=== PATIENT | male | born 1980 | race Caucasian/White ===

== ENCOUNTER 2020-08-30 09:40 | Emergency (ER) | payer OTHER, MEDICAID, SELFPAY ==
[2020-08-30 10:12] VITALS: BP 128/67; PULSE 81; RESP 18; TEMP 37; O2SAT 97; BMI 29.8
--- NOTE | 2020-08-30 10:59 | ED.GENADULT ---
HPI - General Adult General Chief complaint: Upper Respiratory Symptoms Stated complaint: covid symptoms Time Seen by Provider: 08/30/20 10:19 Source: patient Mode of arrival: ambulatory Limitations: no limitations History of Present Illness HPI narrative: 40 y/o male presenting with a dry, scratchy throat for the last 3-4 days. He is requesting a COVID test. He reports a coworker who he was in close proximiety to on Saturday tested positive for COVID-19 yesterday. 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 He denies all other symptoms. No chest pain, SOB, ROSSI, fevers. He is hoping his sore throat is from his seasonal allergies as he has been having some watery eyes as well. MD complaint: sore throat Onset (ago): day(s) (4) Location: mouth Radiation: non-radiation Severity: mild Quality: sharp Pain Consistency: constant Relieving factors: none Exacerbating factors: eating Associated symptoms: denies other symptoms Treatments prior to arrival: none Related Data Allergies Allergy/AdvReac Type Severity Reaction Status Date / Time Unable to Assess Allergy Unverified 08/30/20 10:20 Review of Systems Review of Systems: Constitutional: No Fever, No Chills ENT/Mouth: No sore throat, No Rhinorrhea, No Swallowing Difficulty Eyes: No Eye Pain, No Swelling, No Redness Cardiovascular: No Chest Pain, No SOB, No Orthopnea, No Edema Respiratory: No Cough, No Sputum, No Wheezing, No dyspnea Gastrointestinal: No Nausea, No Vomiting, No Diarrhea, No abdominal Pain, No Hematochezia, No Melena Genitourinary: No Dysuria, No Urinary Frequency, No Hematuria Musculoskeletal: No joint pain, No Myalgias Skin: No Skin Lesions, No rash Neuro: No Weakness, No Numbness, No Dizziness, No Headache Psych: No Anxiety/Panic, No Depression Heme/Lymph: No Bruising, No Lymphadenopathy Endocrine: No Polyuria, No Polydipsia PMFSH Social History Social History Advance Directives: Yes Advance Directives Information Provided: Yes Advance Directives on File: No Physical Exam Vital Signs: Vital Signs: Last Vital Signs Temp 98.6 F 08/30/20 10:12 Pulse 81 08/30/20 10:12 Resp 18 08/30/20 10:12 BP 128/67 08/30/20 10:12 Pulse Ox 97 08/30/20 10:12 Body Mass Index 29.8 Appearance: Alert. Oriented X3. No acute distress. Eyes: Pupils equal, round and reactive to light. ENT: Pharynx normal. No tonsillar swelling or exudate. Neck: Normal inspection. Neck supple. CVS: Normal heart rate and rhythm. Pulses normal. Respiratory: No respiratory distress. Breath sounds normal. Skin: Skin warm and dry. Normal skin color. Normal skin turgor. No rashes. Neuro: Oriented X 3. Non-focal, steady gait. Course Course Course Narrative: 40 y/o male presenting with sore throat after COVID exposure last week. Examination is normal as well as vital signs. COVID test is negative. Discussed possibility of false negative and recommended getting retested if remains symptomatic in 48 hours. He has been counseled on warning signs to prompt urgent re-evaluation. He is stable for discharge. Medical Decision Making Lab Data Labs: Lab Results 08/30/20 Range/Units 10:47 COVID-19 ([facility]) Negative (Negative) COVID-19 Clin Com See Note Critical Care Time Critical Care Time Critical Care Time: No Discharge Plan Discharge Clinical Impression: Pharyngitis, acute Qualifiers: Pharyngitis/tonsillitis etiology: unspecified etiology Qualified Code(s): J02.9 - Acute pharyngitis, unspecified Patient Disposition: Home, Self-Care Instructions: Pharyngitis (ED) Additional Instructions: Your COVID test was NEGATIVE today. Given your exposure last week, if you are continuing to have symptoms recommend getting re-tested in a couple of days. This test could be a false negative. Continue to wear your mask, wash your hands frequently and disinfect surfaces often. Do not go out in public if you are not feeling well. Follow up with your doctor this week. Come back to the ER if you develop shortness of breath, chest pain or any other concerning symptoms. Stand Alone Forms: Work/School Release
[2020-08-30 11:22] LABS: COVID-19 Test Negative (Negative)
== END 2020-08-30 12:02 | disposition home or self-care (01) ==
PROVIDERS: Physician Assistant; Emergency Provider Emergency Medicine Emergency Medical Services
DX: J02.9 Acute pharyngitis, unspecified (principal); Z20.822 Contact with and (suspected) exposure to COVID-19
CPT/HCPCS: 36415; 87635; 99283

== ENCOUNTER 2021-06-22 17:11 | Emergency (ER) | payer OTHER, MEDICAID, SELFPAY | END 2021-06-22 22:24 | disposition left against medical advice (07) | LOC: HO.ED 22:17 | PROVIDERS: Emergency Provider Emergency Medicine | DX: T15.92XA Foreign body on external eye, part unspecified, left eye, initial encounter (principal); X58.XXXA Exposure to other specified factors, initial encounter ==

== ENCOUNTER 2021-06-23 06:14 | Emergency (ER) | payer OTHER, MEDICAID, SELFPAY ==
[2021-06-23 06:20] VITALS: BP 145/79; PULSE 50; RESP 20; TEMP 36.7; O2SAT 98; BMI 32.5
--- NOTE | 2021-06-23 08:06 | ED_ITS ---
HPI - Eye Problem General Chief complaint: Eye Problems Stated complaint: Eye issue Time Seen by Provider: 06/23/21 06:22 Source: patient Mode of arrival: ambulatory Limitations: no limitations History of Present Illness HPI Narrative: 40-year-old male presents for red left eye. 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 yesterday he felt something go into his eye. He rinsed his eye. His left eye was painful last night, is not painful now. He does not have a feeling of a foreign body now, he does not were contacts. No headache, no blurry vision. chief complaint: eye injury Onset (ago): day(s) (1) Onset description: sudden Duration: improved Location: left eye Eye Symptoms: redness Place: work Mechanism: direct trauma Severity: moderate Associated symptoms: none Treatments Prior to Arrival: irrigated eye Related Data Patient tetanus UTD: No Previous Rx's Medication Instructions Recorded erythromycin 5 mg/gram (0.5 %) eye 0.5 inch OPHTHALMIC (EYE) Q6H 5 06/23/21 ointment Days #3.5 g erythromycin 5 mg/gram (0.5 %) eye 0.5 inch OPHTHALMIC (EYE) QID #3.5 06/23/21 ointment g Allergies Allergy/AdvReac Type Severity Reaction Status Date / Time Unable to Assess Allergy Unverified 08/30/20 10:20 Review of Systems Constitutional: Constitutional: Denies body ache(s), Denies chills, Denies fatigue, Denies fever(s), Denies headache(s), Denies malaise and Denies weakness Eyes: Eyes: Denies blurry vision, Denies change in vision, Denies diplopia, Reports irritation, Denies loss of peripheral vision, Denies loss of vision, Denies eye pain and Reports photophobia Comments: Concern for foreign body in left eye ENT: Denies vertigo, Denies dizziness, Denies otalgia, Denies headache(s), Denies mouth pain, Denies post nasal drip, Denies sinus pain, Denies sinus pressure, Denies sore throat and Denies throat swelling Cardiovascular: Cardiovascular: Denies chest pain, Denies syncope, Denies leg edema, Denies lightheadedness, Denies Loss of Consciousness, Denies palpitations and Denies dyspnea Respiratory: Respiratory: Denies chest congestion, Denies cough and Denies dyspnea Gastrointestinal: Gastrointestinal: Reports abdominal pain, Denies hematochezia, Denies constipation, Denies diarrhea and Denies vomiting Musculoskeletal: Musculoskeletal: Reports no additional musculoskeletal complaints Neurologic: Denies confusion, Denies vertigo, Denies dizziness, Denies syncope, Denies headache(s), Denies loss of vision and Denies weakness Psychiatric: Psychiatric: Denies anxiety, Denies confusion and Denies depression Endocrine: Endocrine: Denies fatigue and Denies palpitations Allergic/Immunologic: Allergic/Immunologic: Denies throat swelling [facility] Social History Social History Advance Directives: No Physical Exam Vital Signs: Vital Signs: Last Vital Signs Temp 98.1 F 06/23/21 06:20 Pulse 50 06/23/21 06:20 Resp 20 06/23/21 06:20 BP 145/79 H 06/23/21 06:20 Pulse Ox 98 06/23/21 06:20 BMI result Body Mass Index 32.5 Const: General: No confusion Nutritional Appearance: well nourished Orientation/consciousness: No confusion Limitations: no limitations HENMT: Head: Yes normal to inspection, Yes normocephalic and Yes atraumatic Ears: hearing grossly normal bilaterally, external ears normal, TM's normal bilaterally and EAC's normal General nose exam: Normal external nose present Face and sinus: Yes normal facial exam and Yes sinuses nontender Mouth: Normal oral and palatal mucosa present Throat: Yes posterior oropharynx normal Eyes: Conjunctivae: conjunctival abnormal left conjunctival injection diffuse Sclerae: sclerae normal Corneas: corneas abnormal on the left fluorescein used and abrasion punctate and at the following clock position (11) and fluorescein used Pupils: Equal, round and reactive pupils present EOM: EOMs intact bilaterally Direct Ophthalmoscopy: normal light reflex, no photophobia and photophobia Neck: Neck: Yes full ROM, Yes no lymphadenopathy and Yes supple Resp: Effort & Inspection: normal respiratory effort and able to speak in complete sentences Auscultation: clear to auscultation bilaterally, no crackles, no rales, no rhonchi and no wheezes Cardio: Rate: regular rate Rhythm: regular rhythm Heart sounds: S1 normal heart sound present and S2 normal heart sound present GI: Inspection: Yes normal to inspection Palpation (GI): Soft to palpation, nontender, no guarding and not rigid Percussion: Yes normal to percussion Auscultation: normal bowel sounds Skin: General skin exam: no rashes or lesions noted Neuro: General: No confusion Cranial nerves: Yes Equal, round and reactive pupils present Extrem: General: Yes normal to inspection and Yes full ROM Psych: Appearance: grossly normal Affect: normal affect Attitude: cooperative Thought process: Normal thought process present Course Course Course Narrative: 40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 On exam, patient has intact EOMs without pain, pupils equal and reactive to light, patient has injected left eye with a punctate foreign body at 11:00 o'clock position.. This looks like metal. I was not able to remove with a Q- tip. Called Dr. Colbert, eye doctor, and executive legal secretary said to have patient come right over and they would evaluate patient. I also prescribed erythromycin for patient Discharge Plan Discharge Clinical Impression: Corneal abrasion, Metal foreign body in eye region Patient Disposition: Home, Self-Care Instructions: Corneal Abrasion (ED), Eye Foreign Body (ED) Additional Instructions: Go directly to Dr. eMlvin's office at [address] [place] [address]. They are aware and are waiting for you. They will take the foreign metal body out of your eye. 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 I have included a work note to excuse you from work until next Saturday. Please return to emergency room if you have any sudden vision loss, sudden visual pain, or any other new or concerning symptoms. Prescriptions: New erythromycin 5 mg/gram (0.5 %) ointment 0.5 inch ophthalmic (eye) Q6H 5 Days Qty: 3.5 RF: 0 erythromycin 5 mg/gram (0.5 %) ointment 0.5 inch ophthalmic (eye) QID Qty: 3.5 RF: 0 Stand Alone Forms: Work/School Release Interventions: ED Discharge Assessment Last Done: 06/23/21 10:18 Discharge Date/Time: 06/23/21 10:19
[2021-06-23] MEDS: Diphth,Pertus(ACell),Tet Adult 0.5 ML SYRINGE IM (08:52)
[2021-06-23] MEDS: Tetracaine HCl/PF 0.5% Oph Sol 4 ML DROPS 2 DROP EYE-LEFT (08:53)
[2021-06-23] MEDS: Fluorescein Sodium STRIP 1 STRIP EYE-LEFT (08:53)
== END 2021-06-23 10:19 | disposition home or self-care (01) ==
PROVIDERS: Emergency Provider Emergency Medicine
DX: S00.212A Abrasion of left eyelid and periocular area, initial encounter (principal); T15.02XA Foreign body in cornea, left eye, initial encounter; H57.12 Ocular pain, left eye; Y28.9XXA Contact with unspecified sharp object, undetermined intent, initial encounter; Y93.9 Activity, unspecified; Y92.9 Unspecified place or not applicable; Y99.0 Civilian activity done for income or pay; Z79.899 Other long term (current) drug therapy
CPT/HCPCS: 90471; 90715; 99284

== ENCOUNTER 2023-04-02 09:01 | Emergency (ER) | payer OTHER, MEDICAID, SELFPAY ==
[2023-04-02 09:39] VITALS: BP 156/80; PULSE 83; RESP 18; TEMP 36.6; O2SAT 97; BMI 29.8
[2023-04-02 12:00] VITALS: BP 166/94; PULSE 75; RESP 16; TEMP 36.6; O2SAT 99
--- NOTE | 2023-04-02 13:17 | ED.DENTAL ---
HPI - Dental/Oral General Chief complaint: Dental/Oral Stated complaint: Dental pain Time Seen by Provider: 04/02/23 13:10 Source: patient Mode of arrival: ambulatory Limitations: no limitations History of Present Illness HPI Narrative: 42-year-old male who presents emergency department for evaluation left upper dental pain. Patient states that his tooth fracture approximately 3 weeks prior. He states that over the last 2 days he has had pain in the area of the fractured tooth with swelling of his face. Pain is a constant throbbing sensation. He has taken [id number] medications with minimal relief. He states that his left cheek and face is now swollen so came to the emergency department for evaluation. He denied fever, chills, nausea, vomiting, fatigue or headache. Teeth map: 1. Tooth is decayed down to the gumline, gingiva is tender with no obvious abscess Related Data Previous Rx's Medication Instructions Recorded erythromycin 5 mg/gram (0.5 %) eye 0.5 inch ophthalmic (eye) Q6H 5 06/23/21 ointment days #3.5 grams erythromycin 5 mg/gram (0.5 %) eye 0.5 inch ophthalmic (eye) QID #3.5 06/23/21 ointment grams amoxicillin 500 mg capsule 1,000 mg (2 x 500 mg) PO Q12H 7 04/02/23 days #28 caps Allergies Allergy/AdvReac Type Severity Reaction Status Date / Time No Known Allergies Allergy Verified 04/02/23 09:41 Review of Systems Review of Systems: Yes all other systems are reviewed and are negative [facility] Past Medical History [facility] Narrative: Past medical history: None. Social history: He denies tobacco, alcohol and drug use. He states that he is employed and has dental insurance but his insurance has not kicked in yet. Physical Exam Vital Signs: Vital Signs: Last Vital Signs Temp 97.9 F 04/02/23 09:39 Pulse 83 04/02/23 09:39 Resp 18 04/02/23 09:39 BP 156/80 H 04/02/23 09:39 Pulse Ox 97 04/02/23 09:39 O2 Del Method Room Air 04/02/23 09:39 BMI result Body Mass Index 29.8 Vital signs did reveal an elevated blood pressure but this is most likely secondary to pain Exam General: Awake, alert in no distress Head: Normocephalic, atraumatic EENT: Patient does have swelling of his left upper face secondary to his dental infection, this area is tender to palpation but there is no increased warmth, patient has decay of tooth #12 down to the gumline with no gingival swelling or tenderness. He has other significant areas of dental arlet says well. Neck: Supple, no adenopathy, no trachea midline or C-spine tenderness Neuro: Awake, alert, oriented, normal speech, Psych: Pleasant, cooperative Medical Decision Making Medical Decision Making MDM Narrative: 42-year-old male who presents emergency department for evaluation of fracture of tooth #12, three weeks prior and now pain in this area of the dental fracture. He has also noted swelling of his left upper jaw, he has no trismus, no systemic symptoms such as fever, chills, fatigue or headache. Patient's presentation is consistent with dental infection/abscess. Patient was started on amoxicillin 1000 mg q.12 hours x7 days. He was advised to take Tylenol and ibuprofen for his pain, patient does not want a prescription pain medication. Patient was advised to follow-up with either his dentist or to contact [facility] to try to follow-up with 1 of their dentist. Patient did have an elevated blood pressure which I believe is secondary to his pain, I advised him to get his blood pressure checked when he is better if his blood pressure is high when he is not pain then he may need treatment for hypertension. Differential Diagnosis Differential Diagnoses: The differential diagnosis associated with the presentation includes Differential diagnosis includes but is not limited to dental infection, dental abscess, gingivitis Discharge Plan Discharge Clinical Impression: Toothache Patient Disposition: Home, Self-Care Instructions: Dental Abscess (ED) Additional Instructions: Take amoxicillin 500 mg pills 2 pills every 12 hours for 7 days Take ibuprofen 200 mg pills, 2 pills every 6 hours as needed for pain or fever. Take Tylenol (acetaminophen) 500 mg pills, 2 pills every 6 hours as needed for pain or fever. Apply heat you your left upper jaw for 10-15 minutes 4 to 6 times a day. He will increase the blood flow to the area and help the healing process. Follow-up with with your dentist or [facility] in [place] or [place] has a dental clinic that may be able to see you in follow-up. Please return to the emergency department if your symptoms get worse or if you develop any symptoms that are concerning to you. Your blood pressure was high at 156/80, this is most likely caused by pain. When your better and not having pain you should have your blood pressure checked and if you have high blood pressure would be important follow-up with your primary care doctor to determine if you need treatment for elevated blood pressure. Prescriptions: New amoxicillin 500 mg capsule 1,000 mg PO Q12H 7 Days Qty: 28 0RF No Action erythromycin 5 mg/gram (0.5 %) ointment 0.5 inch ophthalmic (eye) Q6H 5 Days Qty: 3.5 0RF Rx Instructions: Please place that half-inch strip in your left eye 4 times a day for 5 days erythromycin 5 mg/gram (0.5 %) ointment 0.5 inch ophthalmic (eye) QID Qty: 3.5 0RF
== END 2023-04-02 13:36 | disposition home or self-care (01) ==
PROVIDERS: Emergency Provider Emergency Medicine Emergency Medical Services
DX: K08.89 Other specified disorders of teeth and supporting structures (principal); K02.9 Dental caries, unspecified
CPT/HCPCS: 99282; 99283

== ENCOUNTER 2023-07-18 01:13 | Emergency (ER) | payer OTHER, SELFPAY ==
[2023-07-18 01:18] VITALS: BP 147/90; PULSE 75; RESP 14; TEMP 36.8; O2SAT 97; BMI 37.6
[2023-07-18] MEDS: Acetaminophen 325 MG TABLET 975 MG PO (05:41)
--- NOTE | 2023-07-18 06:22 | ED.GENADULT ---
HPI - General Adult General Chief complaint: Dental/Oral Stated complaint: dental pain Time Seen by Provider: 07/18/23 06:13 History of Present Illness HPI narrative: The patient says that a few weeks ago he was chewing and he felt a tooth on his right jaw break. He has been working on getting dental insurance and has not his dentist about it. Over the last 24 hours he has developed a sense of pain and swelling at the site of the broken tooth. He took ibuprofen but this did not help. He has not had a fever. Related Data Previous Rx's Medication Instructions Recorded erythromycin 5 mg/gram (0.5 %) eye 0.5 inch ophthalmic (eye) Q6H 5 06/23/21 ointment days #3.5 grams erythromycin 5 mg/gram (0.5 %) eye 0.5 inch ophthalmic (eye) QID #3.5 06/23/21 ointment grams amoxicillin 500 mg capsule 1,000 mg (2 x 500 mg) PO Q12H 7 04/02/23 days #28 caps amoxicillin 875 mg-potassium 1 tab PO Q12H #20 tabs 07/18/23 clavulanate 125 mg tablet ibuprofen 600 mg tablet 600 mg PO Q6H PRN pain #14 tabs 07/18/23 Allergies Allergy/AdvReac Type Severity Reaction Status Date / Time No Known Allergies Allergy Verified 07/18/23 01:18 Review of Systems Review of Systems: Yes all other systems are reviewed and are negative ON LICENSE OF [facility] Social History Social History Smoked in Last 30 Days: No Use of substances other than those prescribed or required for medical reasons: No Advance Directives: No Advance Directives Information Provided: Yes Physical Exam ED Vital Signs: Vital Signs - 24 hr 07/18/23 01:18 Temperature 98.3 F Pulse Rate 75 Respiratory Rate 14 Blood Pressure 147/90 H Pulse Oximetry 97 Oxygen Delivery Method Room Air BMI result Body Mass Index 37.6 Const Other: The patient is awake and alert. He has a very pleasant 42-year-old. It does not appear overtly in distress or toxic. HENMT Other: The face is symmetrical although there may be some very slight soft tissue swelling on the side of the right jaw. The patient has no trismus. Tooth number 30 is fractured. At the floor of the vestibule at the base of tooth # 30 there is some soft tissue swelling which is tender but not fluctuant. Eyes Other: Pupils are round equal, conjunctivae are clear, extraocular movements intact Neck Other: Neck is supple, no cervical adenopathy Resp Effort & Inspection: normal respiratory effort Auscultation: clear to auscultation bilaterally Cardio Rate: regular rate Rhythm: regular rhythm Heart sounds: S1 normal heart sound present and S2 normal heart sound present Skin Other: No erythema to the skin overlying the right jaw. Neuro Other: The patient is awake, alert, pleasant, cooperative, grossly neurologically intact. Extrem Other: Extremities are unremarkable Medications Administered Discontinued Medications Generic Name Dose Route Start Last Admin Trade Name Freq PRN Reason Stop Dose Admin Acetaminophen 975 mg 07/18/23 05:39 07/18/23 05:41 Acetaminophen 325 Mg Tablet PO 07/18/23 05:40 975 mg ONCE ONE Administration Amoxicillin/Clavulanate Potassium 875 mg 07/18/23 06:21 07/18/23 06:27 Amoxicillin/Potassium Clav 875 Mg Tablet PO 07/18/23 06:22 875 mg ONCE ONE Administration Ketorolac Tromethamine 60 mg 07/18/23 06:21 07/18/23 06:26 Ketorolac Tromethamine 60 Mg/2 Ml Vial IM 07/18/23 06:22 60 mg ONCE ONE Administration Medical Decision Making Medical Decision Making [facility] Narrative: Patient clearly has a dental infection related to a fractured tooth at tooth number 30 on the right jaw. There is soft tissue swelling of the vestibule at the base of tooth number 30 the swelling is not particularly fluctuant however and I do not think it would be amenable to any kind of attempt at drainage. I suspect this is more of a phlegmon than an abscess. The patient will be started on Augmentin. Ibuprofen as needed for pain. Also acetaminophen. He believes he has recently gotten dental insurance. He does not currently have a dentist. He is encouraged to contact dental offices to try to get more definitive care. Discharge Plan Discharge Clinical Impression: Dental infection Patient Disposition: Home, Self-Care Instructions: Dental Abscess (ED) Additional Instructions: I believe you have an infection related to the broken molar on your right jaw. You have been started on a course of an antibiotic, amoxicillin/clavulanate. This is also known as Augmentin. Please take this 2 times a day. You may take 600 mg of ibuprofen every 6 hours as needed for pain. You may take 2 extra-strength acetaminophen (Tylenol) up to 3 times a day as needed for pain as well. Please work on getting a dentist so that you can have this taken care of. Return to the emergency room if fevers or other worsening symptoms. Prescriptions: New amoxicillin-pot clavulanate 875-125 mg tablet 1 tab PO Q12H Qty: 20 0RF ibuprofen 600 mg tablet 600 mg PO Q6H PRN (Reason: pain) Qty: 14 0RF No Action erythromycin 5 mg/gram (0.5 %) ointment 0.5 inch ophthalmic (eye) Q6H 5 Days Qty: 3.5 0RF Rx Instructions: Please place that half-inch strip in your left eye 4 times a day for 5 days erythromycin 5 mg/gram (0.5 %) ointment 0.5 inch ophthalmic (eye) QID Qty: 3.5 0RF amoxicillin 500 mg capsule 1,000 mg PO Q12H 7 Days Qty: 28 0RF
[2023-07-18] MEDS: Ketorolac Tromethamine 60 MG/2 ML VIAL IM (06:26)
[2023-07-18] MEDS: Amoxicillin/Potassium Clav 875 MG TABLET PO (06:27)
== END 2023-07-18 06:34 | disposition home or self-care (01) ==
PROVIDERS: Emergency Provider Emergency Medicine
DX: K08.89 Other specified disorders of teeth and supporting structures (principal)
CPT/HCPCS: 96372; 99284; J1885

== ENCOUNTER 2025-01-12 18:51 | Emergency (ER) | payer OTHER, SELFPAY ==
--- NOTE | 2025-01-12 19:15 | ED.OVERDOSE ---
HPI - Overdose General Chief Complaint: Overdose Stated Complaint: OD Related Data Previous Rx's ?Medication ?Instructions ?Recorded erythromycin 5 mg/gram (0.5 %) eye 0.5 inch ophthalmic (eye) Q6H 5 06/23/21 ointment days #3.5 grams erythromycin 5 mg/gram (0.5 %) eye 0.5 inch ophthalmic (eye) QID #3.5 06/23/21 ointment grams amoxicillin 500 mg capsule 1,000 mg (2 x 500 mg) PO Q12H 7 04/02/23 days #28 caps amoxicillin 875 mg-potassium 1 tab PO Q12H #20 tabs 07/18/23 clavulanate 125 mg tablet ibuprofen 600 mg tablet 600 mg PO Q6H PRN pain #14 tabs 07/18/23 Allergies Allergy/AdvReac Type Severity Reaction Status Date / Time No Known Allergies Allergy Verified 01/12/25 19:24 [facility] Social History Social History Advance Directives: No Advance Directives Information Provided: No Physical Exam Vital Signs: Vital Signs: Last Vital Signs Temp 97.7 F 01/12/25 19:18 Pulse 51 01/12/25 19:18 Resp 22 H 01/12/25 19:18 BP 118/80 01/12/25 19:18 Pulse Ox 99 01/12/25 19:18 O2 Del Method Room Air 01/12/25 19:18 BMI result Body Mass Index 29.8 Course Course Course Narrative: This is a Rapid Medical Examination (RME) performed by Giorgio Fajardo PA-C in triage. Full HPI, ROS, assessment and treatment plan per primary provider in the Main ED. 44 yo male with opiate use disorder, recently sober x6 months and relapse this afternoon who presents to the ER for evaluation after an overdose requiring Narcan at home. his noted him to be lethargic with decreased respirations around 530/6pm today. he has never overdosed or received narcan before. he was awake and alert on arrival in the car - staff present for assistance and he was able to get out of the car on his own and walk into the ER. lethargic in triage but answering questions appropriately with his eyes closed. speaking in complete sentences. he reports he has chills. no vomiting or diarrhea. admits to using a couple bags intranasaly today, for the first time in several months. he is breathing adequately in triage. lungs are clear. no evidence of track whipple on exam. Plan: patient with his , monitor outside of triage room, advised to notify triage if he is more lethargic or respiratory status changes. will get him to see disaster recovery analyst if he wishes, narcan to go Reevaluation(s) Reevaluation #1: patient left the ER prior to completing treatment Discharge Plan Discharge Clinical Impression: Drug overdose Patient Disposition: Left W/O Completing Treatment Prescriptions: No Action erythromycin 5 mg/gram (0.5 %) ointment 0.5 inch ophthalmic (eye) Q6H 5 Days Qty: 3.5 0RF Rx Instructions: Please place that half-inch strip in your left eye 4 times a day for 5 days erythromycin 5 mg/gram (0.5 %) ointment 0.5 inch ophthalmic (eye) QID Qty: 3.5 0RF amoxicillin 500 mg capsule 1,000 mg PO Q12H 7 Days Qty: 28 0RF amoxicillin-pot clavulanate 875-125 mg tablet 1 tab PO Q12H Qty: 20 0RF ibuprofen 600 mg tablet 600 mg PO Q6H PRN (Reason: pain) Qty: 14 0RF Discharge Date/Time: 01/12/25 23:20
[2025-01-12 19:18] VITALS: BP 118/80; PULSE 51; RESP 22; TEMP 36.5; O2SAT 99; BMI 29.8
== END 2025-01-12 23:20 | disposition left against medical advice (07) ==
LOC: HO.ED 23:20
PROVIDERS: Emergency Provider Emergency Medicine
DX: T40.2X1A Poisoning by other opioids, accidental (unintentional), initial encounter (principal); R53.83 Other fatigue; F11.10 Opioid abuse, uncomplicated; Y92.098 Other place in other non-institutional residence as the place of occurrence of the external cause
CPT/HCPCS: 99281